=== PATIENT | male | born 1960 | race Caucasian/White ===

== ENCOUNTER 2020-08-14 18:12 | Emergency (ER) | payer BC, SELFPAY ==
[2020-08-14] MEDS ORDERED: Acetaminophen 500 MG TAB ONE (18:30)
[2020-08-14] MEDS ORDERED: Dexamethasone 4 mg/ml Vial ONE (18:31)
[2020-08-14 19:02] LABS: #Basophils 0.1 thou/uL (0.0-0.2); #Lymphocytes 1.6 thou/uL (1.20-3.40); #Monocytes 0.3 thou/uL (0.11-0.59); #Neutrophils 3.3 thou/uL (1.40-6.50); %Lymphocytes 30.6 % (21.0-51.0); %Monocytes 5.8 % (0.0-10.0); %Neutrophils 62.5 % (42.0-75.0); Hemoglobin 18.9 g/dL (14.0-18.0); Mean Corpuscular HGB CONC 32.5 g/dL (32.0-36.0); Mean Corpuscular Hemoglobin 29.3 pg (27.0-31.0); Mean Corpuscular Volume 90.4 fL (78.0-98.0); Mean Platelet Volume 10.1 fL (7.4-10.4); Platelet Count 170 thou/uL (130-400); Red Blood Cell (RBC) Count 6.44 mill/uL (4.70-6.10); White Blood Cell (WBC) Count 5.3 thou/uL (4.8-10.8)
[2020-08-14 19:10] LABS: ALT (SGPT) 48 U/L (8-55); AST (SGOT) 35 U/L (5-34); Albumin 4.2 g/dL (3.5-5.0); Alkaline Phosphatase 92 U/L (40-110); Anion Gap 19 mmol/L (10-20); BUN (Urea Nitrogen) 22 mg/dL (8.4-25.7); Bilirubin, Total 1.8 mg/dL (0.2-1.2); Calc. Creatinine Clearance 0 mL/min (70-130); Calcium 9.3 mg/dL (7.8-10.44); Carbon Dioxide 24 mmol/L (22-29); Chloride 99 mmol/L (98-107); Globulin 4.2 g/dL (2.4-3.5); Glucose 179 mg/dL (70-105); Potassium 4.2 mmol/L (3.5-5.1); Protein, Total 8.4 g/dL (6.0-8.3); Sodium 138 mmol/L (136-145)
[2020-08-14 19:13] LABS: Prothrombin Time 12.9 sec (12.0-14.7)
[2020-08-14 19:14] LABS: D-Dimer Test Less than 0.27 *mcg/mL (0.27-0.43)
[2020-08-14] MEDS ORDERED: Azithromycin 500 MG VIAL ONE (19:15)
--- NOTE | 2020-08-14 19:36 | RAD ---
PORTABLE CHEST: Date: 08-14-2020 An AP portable film at 1841 is submitted with no prior films available for comparison. FINDINGS: The heart is normal in size. There is no vascular congestion or edema. No pulmonary infiltrate of con cern or effusion was seen. One could wonder about a little haziness in the left base, but this findin g is equivocal at best. IMPRESSION: No definite acute finding. POS: HOME
== END 2020-08-14 20:43 | disposition home or self-care (01) ==
LOC: BURERS 18:12
DX: U07.1 COVID-19 (principal); I10 Essential (primary) hypertension; E86.0 Dehydration
CPT/HCPCS: 71045; 80053; 83605; 85025; 85379; 85610; 85730; 86140; 93005; 94760; 96365; 96375; J0456; J1100

== ENCOUNTER 2020-08-17 21:45 | Emergency (ER) | payer SELFPAY ==
[2020-08-17] MEDS ORDERED: Aspirin Chewable 81 MG TAB ONE (22:18)
[2020-08-17] MEDS ORDERED: Dexamethasone 4 mg/ml Vial ONE (22:18)
[2020-08-17] MEDS ORDERED: cefTRIAXone\\ROCEPHIN 2 GM VIAL ONE (22:33)
[2020-08-17] MEDS ORDERED: Azithromycin 500 MG VIAL ONE (22:33)
[2020-08-17] MEDS ORDERED: cefTRIAXone\\ROCEPHIN 1 GM VIAL ONE (22:36)
[2020-08-17 22:37] LABS: ALT (SGPT) 47 U/L (8-55); AST (SGOT) 31 U/L (5-34); Albumin 3.8 g/dL (3.5-5.0); Alkaline Phosphatase 89 U/L (40-110); Anion Gap 18 mmol/L (10-20); BUN (Urea Nitrogen) 20 mg/dL (8.4-25.7); Bilirubin, Total 2.7 mg/dL (0.2-1.2); Calc. Creatinine Clearance 0 mL/min (70-130); Calcium 8.8 mg/dL (7.8-10.44); Carbon Dioxide 23 mmol/L (22-29); Chloride 96 mmol/L (98-107); Globulin 3.8 g/dL (2.4-3.5); Glucose 221 mg/dL (70-105); Potassium 3.6 mmol/L (3.5-5.1); Protein, Total 7.6 g/dL (6.0-8.3); Sodium 133 mmol/L (136-145)
[2020-08-17 22:40] LABS: Hemoglobin 17.8 g/dL (14.0-18.0); Mean Corpuscular HGB CONC 32.8 g/dL (32.0-36.0); Mean Corpuscular Hemoglobin 28.9 pg (27.0-31.0); Mean Corpuscular Volume 88.1 fL (78.0-98.0); Mean Platelet Volume 10.4 fL (7.4-10.4); Platelet Count 156 thou/uL (130-400); RBC Distribution Width 11.7 % (11.5-14.5); Red Blood Cell (RBC) Count 6.17 mill/uL (4.70-6.10); White Blood Cell (WBC) Count 11.5 thou/uL (4.8-10.8)
[2020-08-17 22:49] LABS: Band 4 % (5-11); Lymphocytes 4 % (21-51); MDiff Complete? YES; Neutrophil 92 % (42-75); Platelet Morphology Comment Appears Adequate; RBC Morphology Normal
[2020-08-17 23:36] LABS: SARS-CoV-2 NAA Rapid Test DETECTED (NotDetected)
--- NOTE | 2020-08-18 10:14 | RAD ---
PORTABLE CHEST: Date: 08/17/2020 An AP portable film at 2223 hours is compared with the 08/14/2020 study. In the interval, the patient has developed infiltrates bilaterally, densest in the right lung base. T here is also generalized interstitial prominence. The findings are bilateral. There is no congestion of the vessels themselves and the heart size is normal. The findings are consistent with COVID pneumo vita given the clinical history. IMPRESSION: Worsening pulmonary infiltrates. POS: HOME
== END 2020-08-18 00:08 | disposition short-term general hospital (02) ==
LOC: BURERS 21:45
DX: U07.1 COVID-19 (principal); R06.03 Acute respiratory distress; Z79.899 Other long term (current) drug therapy; Z79.891 Long term (current) use of opiate analgesic; I10 Essential (primary) hypertension
CPT/HCPCS: 0240U; 71045; 80053; 83605; 83880; 84484; 85025; 85379; 85652; 86140; 87040; 93005; 96365; 96375; J0456; J0696; J1100